=== PATIENT | female | born 1985 ===

== ENCOUNTER → 2017-03-08 | Outpatient (CLI) | payer SELFPAY ==
--- NOTE | 2017-03-08 16:16 | CR ---
EXAMINATION: Left ankle HISTORY: Pain COMPARISON: None TECHNIQUE: 3 views FINDINGS/IMPRESSION: There is a tiny ossific density distal to the fibula, likely a tiny avulsion in jury. Moderate overlying soft tissue swelling is noted. The remaining osseous structures, ankle mort ise, and joint spaces appear intact.
== END ==
LOC: MW.CHORTHO 08:07
PROVIDERS: ATTEND Physician Assistant
DX: M25.572 Pain in left ankle and joints of left foot (principal); M79.89 Other specified soft tissue disorders
CPT/HCPCS: 73610-26-LT; 73610-LT